=== PATIENT | male | born 1970 | race Two or more races ===

== ENCOUNTER 2019-02-16 01:53 | Emergency (ER) | payer OTHER ==
[~2019-02-16] VITALS: Ht 185.4 cm; Wt 96.2 kg
[2019-02-16] MEDS ORDERED: HYDROCODONE/APAP 5MG-325MG TAB PO ONE (03:00)
--- NOTE | 2019-02-16 03:33 | Diagnostic Imaging Report ---
EXAMINATION: Head CT without contrast. HISTORY:Bad headache for 5 days. Elevated blood pressure. COMPARISON:None. TECHNIQUE: Multidetector axial images were obtained from the foramen magnum to the vertex without contrast. The images were reconstructed using brain and bone algorithms. Thin section brain images were reformatted into coronal and sagittal planes. Dose modulation, iterative reconstruction, and/or weight based adjustment of the mA/kV was utilized to reduce the radiation dose to as low as reasonably achievable. Intravenous contrast: None IMAGE QUALITY: Acceptable. FINDINGS: Skull/scalp: No lytic or blastic. lesions. No surgical changes. Parenchyma/extra-axial space: Relative paucity of cerebral cortical sulci with preservation of crocker and white matter interface. Right frontoparietal and left predominantly parietal mildly hyperdense subdural hemorrhage that approximately measures 1.3 cm on the right and 1.5 cm on the left in maximum thickness. Regional mass effect with effacement of cortical sulci, 5.4 mm right to left midline shift and subfalcine herniation. Low-lying cerebellar tonsils approximately 3 mm below the level of foramen magnum. Minimal subarachnoid hemorrhage particularly in the basilar cistern, bilateral ambient cistern and anterior interhemispheric fissure. Arteries: Not well visualized due to mild subarachnoid hemorrhage in bilateral sylvian fissure. Dural sinuses: No abnormal density suggestive of thrombosis. Ventricles: Partial effacement of right more than left lateral ventricle and near complete effacement of the third ventricle due to mass effect. No acute hydrocephalus Brain volume: Normal for age. Craniocervical junction: Low-lying cerebellar tonsils approximately 3 mm below the level of foramen magnum which is still within normal limits, but with the given above findings represent evolving tonsillar herniation. Sella: No mass. Paranasal/mastoid sinuses: Imaged portions unremarkable. IMPRESSION: 1. Bilateral, right frontoparietal and predominantly left parietal acute to subacute subdural hemorrhage results in regional mass effect, 5.4 mm right to left midline shift and subfalcine herniation. 2. Trace acute subarachnoid hemorrhage in the basilar cistern, ambient cistern and anterior interhemispheric fissure. These findings raises concern for possible underlying rupture of aneurysm. Recommendation: CTA head of the head for further assessment. Neurosurgery consultation. 3. Evolving early cerebral edema. Critical findings were informed to ER physician Dr. Rodriguez by phone at 3:19 AM on 02/16/2019. Signed by: Dr. Yeni Markham M.D. on 02/16/2019 3:30 AM
--- NOTE | 2019-02-16 03:38 | Diagnostic Imaging Report ---
History: Severe headache and neck pain. Comparison studies: None Technique: Axial images were obtained through the cervical region.. Coronal and sagittal images reconstructed from the axial data. Dose modulation, iterative reconstruction, and/or weight based adjustment of the mA/kV was utilized to reduce the radiation dose to as low as reasonably achievable. Intravenous contrast: None Findings: Fractures: None. Soft tissue injuries: None. Atlantoaxial articulation: Intact. Alignment: Normal lordosis. No scoliosis. Cervicomedullary junction: No abnormalities. The foramen magnum is patent. Soft tissues: No abnormalities. Vertebrae: No fractures, infection or neoplasm. Degenerative changes: Mild to moderate degenerative disc disease at C5-C6 and C6-C7.. IMPRESSION: 1. No acute cervical spine fracture or dislocation. 2. Ligament, spinal cord and or vascular abnormalities cannot be excluded on the basis of this examination. Signed by: Dr. Yeni Markham M.D. on 02/16/2019 3:35 AM
[2019-02-16] MEDS ORDERED: LABETALOL HCL 20 ML ONE (03:44)
[2019-02-16] MEDS ORDERED: LABETALOL HCL 5 MG/ML 20ML VIAL IV STA (04:14)
== END 2019-02-16 04:15 | disposition other institution (70) ==
LOC: EDBD 01:53 → FSED 01:53
DX: R51 Headache (principal); I62.02 Nontraumatic subacute subdural hemorrhage; I10 Essential (primary) hypertension
CPT/HCPCS: 70450; 72125; 80053; 85025; 99284